=== PATIENT | male | born 1960 | race American Indian/Alaskan Native ===

== ENCOUNTER 2019-06-19 08:49 | Day surgery (SDC) | payer OTHER ==
[~2019-06-19 08:49] MED LIST: SODIUM CHLORIDE 0.9% 1000 ML 1,000 ML IV SCH
--- NOTE | 2019-06-19 09:30 | Anesthesia Day of Surgery ---
Anesthesia Day of Surgery - Day of Surgery Patient Examined: Yes Patient H&P Reviewed: Yes Patient is NPO: Yes Beta Blockers: No Cardiac Clearance: No Pulmonary Clearance: No Stef's Test: N/A
--- NOTE | 2019-06-19 09:31 | Anesthesia Consultation ---
Anesthesia Consult and Med Hx - Airway Anesthetic Teeth Evaluation: Good ROM Head & Neck: Adequate Mental/Hyoid Distance: Adequate Mallampati Class: Class I Intubation Access Assessment: Good - Pulmonary Exam CTA: Yes - Cardiac Exam Cardiac Exam: RRR - Pre-Operative Health Status ASA Pre-Surgery Classification: ASA2 Proposed Anesthetic Plan: General, MAC - Cardiovascular System Hx Hypertension: Yes
[2019-06-19] MEDS ORDERED: LIDOCAINE MPF (2%) 20 MG/1 ML VIAL 5 ML ONE (10:30)
[2019-06-19] MEDS ORDERED: PROPOFOL 200 MG/20 ML VIAL IV ONE ×2 (11:01)
--- NOTE | 2019-06-19 11:35 | Procedure Note ---
Date of procedure: 06/19/19 Pre-op diagnosis: Colon Polyp Screening/ F/H/O Cancer Post-op diagnosis: other (Moderate,Right Colon Diverticuli/No Colon Polyps noted/Normal Ileal Mucosa/Minor,Internal Hemorrhoid) Procedure: Colonoscopy Anesthesia: MAC Surgeon: RAQUEL YE Estimated blood loss: none Pathology: none Condition: stable Disposition: same day (Encourage fiber intake. Resume home medication and follow up in 1 to 2 weeks ([phone]).)
--- NOTE | 2019-06-19 11:38 | Operative Report ---
PROCEDURE: Colonoscopy. INDICATIONS: The patient is a 59-year-old -[place] gentleman with a family history of cancer or prior history of colon polyps, but a colonoscopy done as part of colon polyp screening. DESCRIPTION OF PROCEDURE: Procedure was done after getting informed consent with MAC anesthesia. Initial rectal exam was unremarkable. Instrument was passed through the rectum onto the cecum, which was identified with ileocecal valve and the appendiceal orifice. Visualization was fair to good. The terminal ileum was intubated showed normal mucosa. The cecum was also examined on the retroverted view, which appeared normal. The cecum, ascending colon showed moderate diverticular disease. The transverse colon, descending colon, and sigmoid showed normal mucosa and the rectum appeared normal. There were some minor internal hemorrhoid noted in the retroverted view. There was no bleeding associated with the procedure. No complications associated with the procedure. ASSESSMENT: Colon polyp screening, no colon polyps noted. FAMILY HISTORY: Cancer. Moderate right colon diverticula, minor internal hemorrhoid. No bleeding associated with the procedure. No complications associated with the procedure. The patient will be advised to take fiber supplements. Resume home medication. Follow up in the office in 1-2 weeks' time. The procedure was done in the GI lab with assistance of the GI lab team, which included MARCO Tavares as well as Moody guzman and with assistance of anesthesia. JOB# [id number] PENNY/NENITA
[2019-06-19 12:07] VITALS: BP 124/78
--- NOTE | 2019-06-19 12:12 | Post Anesthesia Evaluation ---
- Post Anesthesia Evaluation Patient Participated: Yes Airway Patent: Yes Stable Respiratory Function: Yes Nausea/Vomiting: No Temp > 96.8F: Yes Pain Manageable: Yes Adequeate Hydration: Yes Anesthesia Complications: No
== END 2019-06-19 08:50 | disposition home or self-care (01) ==
LOC: GIO 08:49
DX: Z12.11 Encounter for screening for malignant neoplasm of colon (principal); K64.8 Other hemorrhoids; I10 Essential (primary) hypertension; M10.9 Gout, unspecified; Z79.899 Other long term (current) drug therapy; Z88.8 Allergy status to other drugs, medicaments and biological substances; Z98.890 Other specified postprocedural states; Z80.0 Family history of malignant neoplasm of digestive organs
CPT/HCPCS: 45378; J2704; J7030